=== PATIENT | male | born 1940 | race Two or more races ===

== ENCOUNTER 2021-07-26 00:24 | Emergency (ER) | payer OTHER ==
[~2021-07-26] VITALS: Ht 170.2 cm; Wt 68.0 kg
[2021-07-26] MEDS ORDERED: ONDANSETRON ODT 4 MG TAB.RAPDIS SL ONE (00:30)
[2021-07-26] MEDS ORDERED: HYDROMORPHONE 1 MG/1 ML DISP.SYRIN IM ONE (00:30)
--- NOTE | 2021-07-26 00:30 | NUR ---
Dr Garza at bedside for MSE.
[2021-07-26] MEDS ORDERED: PANT40TA2 PO (00:41)
[2021-07-26] MEDS ORDERED: ALLO100T PO (00:41)
[2021-07-26] MEDS ORDERED: METO25TA6 PO (00:41)
[2021-07-26] MEDS ORDERED: APIX2.5T PO (00:41)
[2021-07-26] MEDS ORDERED: ATOR10TA PO (00:41)
[2021-07-26 00:50] LABS: HEMATOCRIT 30.5 % (36.7-47.1); MEAN CORPUSCULAR HEMOGLOBIN 33.5 uug (23.8-33.4); MEAN CORPUSCULAR VOLUME 101.3 fL (73.0-96.2); PLATELET COUNT (AUTO) 289 K/uL (152-348)
[2021-07-26 00:55] LABS: CARBON DIOXIDE 29 mmol/L (21-32); CHLORIDE 96 mmol/L (98-107); CREATININE 6.2 mg/dL (0.6-1.3); GLUCOSE 56 mg/dL (74-106); POTASSIUM 3.8 mmol/L (3.5-5.1); UREA NITROGEN, BLOOD 36 mg/dL (7-18)
[2021-07-26] MEDS ORDERED: ONDANSETRON ODT 4 MG TAB.RAPDIS ONE (01:42)
[2021-07-26] MEDS ORDERED: HYDROMORPHONE 1 MG/1 ML DISP.SYRIN ONE (01:42)
[2021-07-26] MEDS ORDERED: GLUC1KIT IM (03:56)
--- NOTE | 2021-07-26 04:55 | NUR ---
Patient discharged to home in stable condition. Written and verbal after care instructions given. Patient verbalizes understanding of instructions. Stressed follow up or return to ER for worsening s/s. pt picked up by ambulance to be taken to private residence. pt denies pain. no sob. no chest pain. AOx4. afebrile.
[2021-07-26 05:26] VITALS: BP 120/59
== END 2021-07-26 05:27 | disposition home or self-care (01) ==
LOC: ER 00:30
DX: E11.649 Type 2 diabetes mellitus with hypoglycemia without coma (principal); T38.3X5A Adverse effect of insulin and oral hypoglycemic [antidiabetic] drugs, initial encounter; Y92.89 Other specified places as the place of occurrence of the external cause; E11.22 Type 2 diabetes mellitus with diabetic chronic kidney disease; N18.6 End stage renal disease; Z99.2 Dependence on renal dialysis; Z79.4 Long term (current) use of insulin; Z79.01 Long term (current) use of anticoagulants; Z79.899 Other long term (current) drug therapy; I50.9 Heart failure, unspecified; R94.31 Abnormal electrocardiogram [ECG] [EKG]; D64.9 Anemia, unspecified; E83.51 Hypocalcemia
CPT/HCPCS: 36415; 71045; 85025; 93005; A4663; J1170; Q0162